=== PATIENT | male | born 1975 | race Caucasian/White ===

== ENCOUNTER 2019-03-30 16:19 | Emergency (ER) | payer OTHER ==
[~2019-03-30] VITALS: Ht 172.7 cm; Wt 68.0 kg
[~2019-03-30 16:19] MED LIST: AMOCLA875 PO; ARIP10 PO; ASPI81EC PO; ESCI10 PO; HYDACE10B PO; HYDACE5 PO; INVEGA; NAPR500 PO
== END 2019-03-30 17:44 | disposition home or self-care (01) ==
LOC: ER 16:19
DX: F20.9 Schizophrenia, unspecified (principal); Z91.19 Patient's noncompliance with other medical treatment and regimen
CPT/HCPCS: 99283

== ENCOUNTER 2022-01-19 13:12 | Emergency (ER) | payer OTHER ==
[~2022-01-19] VITALS: Ht 167.6 cm; Wt 63.5 kg
[2022-01-19] MEDS ORDERED: ACETAMINOPHEN500 MG PO (14:42)
[2022-01-19] MEDS ORDERED: Cyclobenzaprine5 MG PO (14:42)
== END 2022-01-19 14:53 | disposition home or self-care (01) ==
LOC: ER 13:12
DX: M54.50 Low back pain, unspecified (principal); F17.200 Nicotine dependence, unspecified, uncomplicated; X50.9XXA Other and unspecified overexertion or strenuous movements or postures, initial encounter
CPT/HCPCS: 72100; 99283-25; A9270

== ENCOUNTER 2025-05-05 09:14 | Emergency (ER) | payer OTHER ==
[~2025-05-05] VITALS: Ht 167.6 cm; Wt 70.3 kg
[~2025-05-05 09:14] MED LIST changes: +ACETAMINOPHEN500 MG PO; +Cyclobenzaprine5 MG PO
[2025-05-05] MEDS ORDERED: DULO60 PO (09:40)
[2025-05-05] MEDS ORDERED: Ipratropium/Albuterol SulF 2.5-0.5MG/3 ML Amp INH ONE (09:50)
[2025-05-05] MEDS ORDERED: Dexamethasone Sod Phos 10 MG/ML 1ML VIAL PO ONE (09:50)
[2025-05-05] MEDS ORDERED: ALBU90OI INH ×2 (10:33→10:38)
[2025-05-05 10:51] VITALS: BP 105/79
== END 2025-05-05 11:09 | disposition home or self-care (01) ==
LOC: ER 09:14
DX: J45.901 Unspecified asthma with (acute) exacerbation (principal); J44.9 Chronic obstructive pulmonary disease, unspecified; F17.200 Nicotine dependence, unspecified, uncomplicated; Z76.0 Encounter for issue of repeat prescription; Z88.8 Allergy status to other drugs, medicaments and biological substances; Z79.899 Other long term (current) drug therapy
CPT/HCPCS: 71046; 93005; 93010; 99285-25; J1100